=== PATIENT | male | born 1975 | race Caucasian/White ===

== ENCOUNTER 2021-02-03 12:21 | Inpatient (IN) | payer OTHER ==
[2021-02-03 12:55] VITALS: BMI 38.0
[2021-02-03] MEDS ORDERED: guaiFENesin 200 MG/10 ML 10 ML UNIT-DOSE CUPS PO PRN (16:41)
[2021-02-03] MEDS ORDERED: NICOTINE POLACRILEX 2 MG GUM BC PRN (16:41)
[2021-02-03] MEDS ORDERED: MAGNESIUM HYDROX 2400MG/30ML ORAL SUSPENSION 30 ML CUP PO PRN (16:41)
[2021-02-03] MEDS ORDERED: LOPERAMIDE HCL 2 MG CAPSULE PO PRN (16:41)
[2021-02-03] MEDS ORDERED: P-EPHED 60MG/TRIPROLIDI 2.5MG TABLET PO PRN (16:41)
[2021-02-03] MEDS ORDERED: MAGNESIUM CITRATE 300 ML BOTTLE PO PRN (16:41)
[2021-02-03] MEDS: MELATONIN 5 MG TABLETS PO SCH (21:33)
[2021-02-03] MEDS: THIAMINE HCL 100 MG TABLET (FP) PO SCH (21:33)
[2021-02-03] MEDS ORDERED: traZODone HCL 100 MG TABLET (FP) PO ONE (22:00)
[2021-02-04] MEDS: metFORMIN HCL 500 MG TABLET (FP) PO SCH ×2 (06:13→16:54)
[2021-02-04] MEDS: MAG HYDROX/AL HYDROX/SIMETH 30 ML UNIT-DOSE CUP PO PRN ×2 (06:13→21:44)
[2021-02-04] MEDS: IBUPROFEN 400 MG TABLET (FP) PO PRN (06:13)
[2021-02-04] MEDS ORDERED: DIVALPROEX NA *ER* EXTEND REL 500 MG TABLET.SA (FP) PO SCH (10:00)
[2021-02-04] MEDS: NICOTINE 7 MG/24 HOURS TOPICAL PATCH TD SCH (10:45)
[2021-02-04] MEDS: CITALOPRAM HYDROBROMIDE 20 MG TABLET PO SCH (10:47)
[2021-02-04] MEDS: PRENATAL VITAMINS W/ FOLIC ACID TABLET (FP) PO SCH (10:47)
[2021-02-04 17:02] LABS: PH,URINE >= 9.0 (5.0-8.0); URINE APPEARANCE CLEAR; URINE BILIRUBIN NEGATIVE (NEGATIVE); URINE COLOR YELLOW; URINE GLUCOSE (UA) NEGATIVE (NEGATIVE); URINE KETONE NEGATIVE (NEGATIVE); URINE LEUK ESTERASE NEGATIVE (NEGATIVE); URINE NITRITE NEGATIVE (NEGATIVE); URINE PROTEIN NEGATIVE (NEGATIVE); URINE UROBILINOGEN 0.2 mg/dL (0.2-1.0)
[2021-02-04] MEDS: THIAMINE HCL 100 MG TABLET (FP) PO SCH (21:43)
[2021-02-04] MEDS: DIVALPROEX SODIUM 500 MG TABLET E.C. PO SCH (21:43)
[2021-02-04] MEDS ORDERED: ARIPiprazole 5 MG TABLET ONE (21:43)
[2021-02-04] MEDS: BENZTROPINE MESYLATE 1 MG TABLET PO SCH (21:44)
[2021-02-04] MEDS: traZODone HCL 100 MG TABLET (FP) PO SCH (21:44)
[2021-02-04] MEDS: ARIPiprazole 10 MG TABLET PO SCH (21:44)
[2021-02-04] MEDS: MELATONIN 5 MG TABLETS PO SCH (21:47)
[2021-02-05] MEDS: metFORMIN HCL 500 MG TABLET (FP) PO SCH ×2 (06:48→16:40)
[2021-02-05] MEDS: NICOTINE 7 MG/24 HOURS TOPICAL PATCH TD SCH (10:31)
[2021-02-05] MEDS: CITALOPRAM HYDROBROMIDE 20 MG TABLET PO SCH (10:31)
[2021-02-05] MEDS: PRENATAL VITAMINS W/ FOLIC ACID TABLET (FP) PO SCH (10:31)
[2021-02-05] MEDS: hydrOXYzine PAMOATE 25 MG CAPSULE (FP) PO PRN (10:33)
[2021-02-05] MEDS: IBUPROFEN 400 MG TABLET (FP) PO PRN (10:33)
[2021-02-05] MEDS ORDERED: FAMOTIDINE 20 MG TABLET PO ONE (10:51)
[2021-02-05] MEDS: METHOCARBAMOL 500 MG TABLET PO PRN (12:03)
[2021-02-05 13:31] LABS: HEMATOCRIT 44.9 % (35.4-49); HEMOGLOBIN 14.4 GM/dL (11.7-16.9); MCH 27.6 pg (25.7-33.7); MCHC 32.1 g/dl (32.0-35.9); MEAN CELL VOLUME 85.8 fl (80-96); MEAN PLT VOLUME 8.9 fl (7.5-11.1); PLATELET COUNT 217 10^3/uL (134-434); RBC 5.24 M/mm3 (4.00-5.60); RDW 16.2 % (11.9-15.9)
[2021-02-05 13:34] LABS: ALBUMIN 4.2 g/dl (3.4-5.0); BLOOD UREA NITROGEN 9.4 mg/dL (7-18); CALCIUM 9.3 mg/dL (8.5-10.1)
[2021-02-05 13:37] LABS: CREATININE 1.1 mg/dL (0.55-1.3)
[2021-02-05 13:39] LABS: BILIRUBIN,TOTAL 0.4 mg/dL (0.2-1); TOT PROT 7.8 g/dl (6.4-8.2)
[2021-02-05] MEDS ORDERED: ARIPiprazole 5 MG TABLET ONE (19:20)
[2021-02-05] MEDS: ARIPiprazole 10 MG TABLET PO SCH (21:51)
[2021-02-05] MEDS: DIVALPROEX SODIUM 500 MG TABLET E.C. PO SCH (21:51)
[2021-02-05] MEDS: THIAMINE HCL 100 MG TABLET (FP) PO SCH (21:52)
[2021-02-05] MEDS: BENZTROPINE MESYLATE 1 MG TABLET PO SCH (21:52)
[2021-02-05] MEDS: traZODone HCL 100 MG TABLET (FP) PO SCH (21:52)
[2021-02-05] MEDS: FAMOTIDINE 20 MG TABLET PO SCH (21:54)
[2021-02-05] MEDS: MELATONIN 5 MG TABLETS PO SCH (21:54)
[2021-02-06] MEDS: metFORMIN HCL 500 MG TABLET (FP) PO SCH ×2 (06:39→17:04)
[2021-02-06] MEDS: METHOCARBAMOL 500 MG TABLET PO PRN ×2 (10:30→22:04)
[2021-02-06] MEDS: hydrOXYzine PAMOATE 25 MG CAPSULE (FP) PO PRN (10:30)
[2021-02-06] MEDS: FAMOTIDINE 20 MG TABLET PO SCH ×2 (10:30→22:04)
[2021-02-06] MEDS: CITALOPRAM HYDROBROMIDE 20 MG TABLET PO SCH (10:30)
[2021-02-06] MEDS: PRENATAL VITAMINS W/ FOLIC ACID TABLET (FP) PO SCH (10:30)
[2021-02-06] MEDS: NICOTINE 7 MG/24 HOURS TOPICAL PATCH TD SCH (10:30)
[2021-02-06] MEDS: IBUPROFEN 400 MG TABLET (FP) PO PRN (10:32)
[2021-02-06] MEDS ORDERED: ARIPiprazole 5 MG TABLET ONE (20:17)
[2021-02-06] MEDS: DIVALPROEX SODIUM 500 MG TABLET E.C. PO SCH (22:01)
[2021-02-06] MEDS: THIAMINE HCL 100 MG TABLET (FP) PO SCH (22:02)
[2021-02-06] MEDS: BENZTROPINE MESYLATE 1 MG TABLET PO SCH (22:02)
[2021-02-06] MEDS: traZODone HCL 100 MG TABLET (FP) PO SCH (22:03)
[2021-02-06] MEDS: ARIPiprazole 10 MG TABLET PO SCH (22:03)
[2021-02-06] MEDS: MELATONIN 5 MG TABLETS PO SCH (22:04)
[2021-02-07] MEDS: metFORMIN HCL 500 MG TABLET (FP) PO SCH ×2 (06:07→16:55)
[2021-02-07] MEDS: CITALOPRAM HYDROBROMIDE 20 MG TABLET PO SCH (10:06)
[2021-02-07] MEDS: FAMOTIDINE 20 MG TABLET PO SCH ×2 (10:06→21:33)
[2021-02-07] MEDS: PRENATAL VITAMINS W/ FOLIC ACID TABLET (FP) PO SCH (10:06)
[2021-02-07] MEDS: NICOTINE 7 MG/24 HOURS TOPICAL PATCH TD SCH (10:07)
[2021-02-07] MEDS: METHOCARBAMOL 500 MG TABLET PO PRN (10:08)
[2021-02-07] MEDS: IBUPROFEN 400 MG TABLET (FP) PO PRN (10:08)
[2021-02-07] MEDS ORDERED: ARIPiprazole 5 MG TABLET ONE (20:20)
[2021-02-07] MEDS: ARIPiprazole 10 MG TABLET PO SCH (21:33)
[2021-02-07] MEDS: THIAMINE HCL 100 MG TABLET (FP) PO SCH (21:33)
[2021-02-07] MEDS: BENZTROPINE MESYLATE 1 MG TABLET PO SCH (21:33)
[2021-02-07] MEDS: MELATONIN 5 MG TABLETS PO SCH (21:33)
[2021-02-07] MEDS: DIVALPROEX SODIUM 500 MG TABLET E.C. PO SCH (21:33)
[2021-02-07] MEDS: traZODone HCL 100 MG TABLET (FP) PO SCH (21:33)
[2021-02-08] MEDS: metFORMIN HCL 500 MG TABLET (FP) PO SCH ×2 (06:29→16:34)
[2021-02-08] MEDS: PRENATAL VITAMINS W/ FOLIC ACID TABLET (FP) PO SCH (09:21)
[2021-02-08] MEDS: IBUPROFEN 400 MG TABLET (FP) PO PRN (09:21)
[2021-02-08] MEDS: FAMOTIDINE 20 MG TABLET PO SCH ×2 (09:22→21:29)
[2021-02-08] MEDS: NICOTINE 7 MG/24 HOURS TOPICAL PATCH TD SCH (09:22)
[2021-02-08] MEDS: CITALOPRAM HYDROBROMIDE 20 MG TABLET PO SCH (09:22)
[2021-02-08] MEDS ORDERED: ARIPiprazole 5 MG TABLET ONE (19:33)
[2021-02-08] MEDS: traZODone HCL 100 MG TABLET (FP) PO SCH (21:28)
[2021-02-08] MEDS: THIAMINE HCL 100 MG TABLET (FP) PO SCH (21:28)
[2021-02-08] MEDS: DIVALPROEX SODIUM 500 MG TABLET E.C. PO SCH (21:28)
[2021-02-08] MEDS: BENZTROPINE MESYLATE 1 MG TABLET PO SCH (21:28)
[2021-02-08] MEDS: MELATONIN 5 MG TABLETS PO SCH (21:29)
[2021-02-08] MEDS: ARIPiprazole 10 MG TABLET PO SCH (21:29)
[2021-02-09] MEDS: metFORMIN HCL 500 MG TABLET (FP) PO SCH ×2 (06:51→17:36)
[2021-02-09] MEDS: PRENATAL VITAMINS W/ FOLIC ACID TABLET (FP) PO SCH (10:36)
[2021-02-09] MEDS: CITALOPRAM HYDROBROMIDE 20 MG TABLET PO SCH (10:36)
[2021-02-09] MEDS: NICOTINE 7 MG/24 HOURS TOPICAL PATCH TD SCH (10:37)
[2021-02-09] MEDS: IBUPROFEN 400 MG TABLET (FP) PO PRN (10:38)
[2021-02-09] MEDS: METHOCARBAMOL 500 MG TABLET PO PRN (10:38)
[2021-02-09] MEDS: FAMOTIDINE 20 MG TABLET PO SCH ×2 (11:27→21:38)
[2021-02-09] MEDS ORDERED: ARIPiprazole 5 MG TABLET ONE (19:50)
[2021-02-09] MEDS: MELATONIN 5 MG TABLETS PO SCH (21:34)
[2021-02-09] MEDS: THIAMINE HCL 100 MG TABLET (FP) PO SCH (21:35)
[2021-02-09] MEDS: ARIPiprazole 10 MG TABLET PO SCH (21:36)
[2021-02-09] MEDS: traZODone HCL 100 MG TABLET (FP) PO SCH (21:36)
[2021-02-09] MEDS: BENZTROPINE MESYLATE 1 MG TABLET PO SCH (21:36)
[2021-02-09] MEDS: DIVALPROEX SODIUM 500 MG TABLET E.C. PO SCH (21:36)
[2021-02-09 22:56] LABS: HIV INTERPRETATION NEGATIVE (NEGATIVE)
[2021-02-10] MEDS: metFORMIN HCL 500 MG TABLET (FP) PO SCH ×2 (06:51→16:54)
[2021-02-10] MEDS: FAMOTIDINE 20 MG TABLET PO SCH ×2 (06:51→21:25)
[2021-02-10] MEDS: CITALOPRAM HYDROBROMIDE 20 MG TABLET PO SCH (10:11)
[2021-02-10] MEDS: PRENATAL VITAMINS W/ FOLIC ACID TABLET (FP) PO SCH (10:11)
[2021-02-10] MEDS: METHOCARBAMOL 500 MG TABLET PO PRN (10:12)
[2021-02-10] MEDS: NICOTINE 7 MG/24 HOURS TOPICAL PATCH TD SCH (10:13)
[2021-02-10] MEDS: ACETAMINOPHEN 325 MG TABLET (FP) PO PRN (10:13)
[2021-02-10] MEDS: DIVALPROEX SODIUM 500 MG TABLET E.C. PO SCH (21:25)
[2021-02-10] MEDS: THIAMINE HCL 100 MG TABLET (FP) PO SCH (21:25)
[2021-02-10] MEDS: MELATONIN 5 MG TABLETS PO SCH (21:26)
[2021-02-10] MEDS: BENZTROPINE MESYLATE 1 MG TABLET PO SCH (21:26)
[2021-02-10] MEDS: traZODone HCL 100 MG TABLET (FP) PO SCH (21:26)
[2021-02-10] MEDS: ARIPiprazole 10 MG TABLET PO SCH (21:26)
[2021-02-11] MEDS: metFORMIN HCL 500 MG TABLET (FP) PO SCH ×2 (06:15→16:47)
[2021-02-11] MEDS: FAMOTIDINE 20 MG TABLET PO SCH ×2 (06:15→21:33)
[2021-02-11] MEDS: MAG HYDROX/AL HYDROX/SIMETH 30 ML UNIT-DOSE CUP PO PRN (06:21)
[2021-02-11] MEDS: IBUPROFEN 400 MG TABLET (FP) PO PRN (10:11)
[2021-02-11] MEDS: PRENATAL VITAMINS W/ FOLIC ACID TABLET (FP) PO SCH (10:12)
[2021-02-11] MEDS: CITALOPRAM HYDROBROMIDE 20 MG TABLET PO SCH (10:12)
[2021-02-11] MEDS: hydrOXYzine PAMOATE 25 MG CAPSULE (FP) PO PRN ×2 (10:12→21:33)
[2021-02-11] MEDS: NICOTINE 7 MG/24 HOURS TOPICAL PATCH TD SCH (10:12)
[2021-02-11] MEDS: METHOCARBAMOL 500 MG TABLET PO PRN ×2 (10:12→21:32)
[2021-02-11] MEDS ORDERED: ARIPiprazole 5 MG TABLET ONE (19:24)
[2021-02-11] MEDS: DIVALPROEX SODIUM 500 MG TABLET E.C. PO SCH (21:32)
[2021-02-11] MEDS: THIAMINE HCL 100 MG TABLET (FP) PO SCH (21:32)
[2021-02-11] MEDS: traZODone HCL 100 MG TABLET (FP) PO SCH (21:32)
[2021-02-11] MEDS: ARIPiprazole 10 MG TABLET PO SCH (21:32)
[2021-02-11] MEDS: BENZTROPINE MESYLATE 1 MG TABLET PO SCH (21:33)
[2021-02-11] MEDS: MELATONIN 5 MG TABLETS PO SCH (21:33)
[2021-02-12] MEDS: FAMOTIDINE 20 MG TABLET PO SCH ×2 (06:18→21:33)
[2021-02-12] MEDS: metFORMIN HCL 500 MG TABLET (FP) PO SCH ×2 (06:18→16:50)
[2021-02-12] MEDS: PRENATAL VITAMINS W/ FOLIC ACID TABLET (FP) PO SCH (10:13)
[2021-02-12] MEDS: hydrOXYzine PAMOATE 25 MG CAPSULE (FP) PO PRN ×2 (10:14→21:33)
[2021-02-12] MEDS: NICOTINE 7 MG/24 HOURS TOPICAL PATCH TD SCH (10:14)
[2021-02-12] MEDS: CITALOPRAM HYDROBROMIDE 20 MG TABLET PO SCH (10:14)
[2021-02-12] MEDS ORDERED: ARIPiprazole 5 MG TABLET ONE (19:35)
[2021-02-12] MEDS: THIAMINE HCL 100 MG TABLET (FP) PO SCH (21:32)
[2021-02-12] MEDS: METHOCARBAMOL 500 MG TABLET PO PRN (21:32)
[2021-02-12] MEDS: MELATONIN 5 MG TABLETS PO SCH (21:32)
[2021-02-12] MEDS: BENZTROPINE MESYLATE 1 MG TABLET PO SCH (21:32)
[2021-02-12] MEDS: traZODone HCL 100 MG TABLET (FP) PO SCH (21:33)
[2021-02-12] MEDS: DIVALPROEX SODIUM 500 MG TABLET E.C. PO SCH (21:34)
[2021-02-12] MEDS: ARIPiprazole 10 MG TABLET PO SCH (21:35)
[2021-02-13] MEDS: metFORMIN HCL 500 MG TABLET (FP) PO SCH ×2 (06:43→17:24)
[2021-02-13] MEDS: FAMOTIDINE 20 MG TABLET PO SCH ×2 (06:43→21:16)
[2021-02-13] MEDS: NICOTINE 7 MG/24 HOURS TOPICAL PATCH TD SCH (10:06)
[2021-02-13] MEDS: CITALOPRAM HYDROBROMIDE 20 MG TABLET PO SCH (10:06)
[2021-02-13] MEDS: hydrOXYzine PAMOATE 25 MG CAPSULE (FP) PO PRN (10:06)
[2021-02-13] MEDS: PRENATAL VITAMINS W/ FOLIC ACID TABLET (FP) PO SCH (10:06)
[2021-02-13] MEDS: IBUPROFEN 400 MG TABLET (FP) PO PRN ×2 (10:08→21:18)
[2021-02-13] MEDS: METHOCARBAMOL 500 MG TABLET PO PRN ×2 (10:08→21:18)
[2021-02-13] MEDS ORDERED: ARIPiprazole 5 MG TABLET ONE (18:25)
[2021-02-13] MEDS: DIVALPROEX SODIUM 500 MG TABLET E.C. PO SCH (21:16)
[2021-02-13] MEDS: traZODone HCL 100 MG TABLET (FP) PO SCH (21:16)
[2021-02-13] MEDS: THIAMINE HCL 100 MG TABLET (FP) PO SCH (21:16)
[2021-02-13] MEDS: ARIPiprazole 10 MG TABLET PO SCH (21:16)
[2021-02-13] MEDS: BENZTROPINE MESYLATE 1 MG TABLET PO SCH (21:16)
[2021-02-13] MEDS: MELATONIN 5 MG TABLETS PO SCH (21:17)
[2021-02-14] MEDS: FAMOTIDINE 20 MG TABLET PO SCH ×2 (06:40→21:37)
[2021-02-14] MEDS: metFORMIN HCL 500 MG TABLET (FP) PO SCH ×2 (06:40→17:09)
[2021-02-14] MEDS: NICOTINE 7 MG/24 HOURS TOPICAL PATCH TD SCH (10:29)
[2021-02-14] MEDS: PRENATAL VITAMINS W/ FOLIC ACID TABLET (FP) PO SCH (10:29)
[2021-02-14] MEDS: METHOCARBAMOL 500 MG TABLET PO PRN ×2 (10:29→21:37)
[2021-02-14] MEDS: IBUPROFEN 400 MG TABLET (FP) PO PRN (10:29)
[2021-02-14] MEDS: CITALOPRAM HYDROBROMIDE 20 MG TABLET PO SCH (10:29)
[2021-02-14] MEDS: hydrOXYzine PAMOATE 25 MG CAPSULE (FP) PO PRN ×2 (10:29→21:37)
[2021-02-14] MEDS ORDERED: ARIPiprazole 5 MG TABLET ONE (19:48)
[2021-02-14] MEDS: traZODone HCL 100 MG TABLET (FP) PO SCH (21:37)
[2021-02-14] MEDS: DIVALPROEX SODIUM 500 MG TABLET E.C. PO SCH (21:37)
[2021-02-14] MEDS: THIAMINE HCL 100 MG TABLET (FP) PO SCH (21:37)
[2021-02-14] MEDS: ARIPiprazole 10 MG TABLET PO SCH (21:37)
[2021-02-14] MEDS: BENZTROPINE MESYLATE 1 MG TABLET PO SCH (21:37)
[2021-02-14] MEDS: MELATONIN 5 MG TABLETS PO SCH (21:38)
[2021-02-15] MEDS: FAMOTIDINE 20 MG TABLET PO SCH ×2 (06:35→21:40)
[2021-02-15] MEDS: metFORMIN HCL 500 MG TABLET (FP) PO SCH ×2 (06:35→16:51)
[2021-02-15] MEDS: CITALOPRAM HYDROBROMIDE 20 MG TABLET PO SCH (10:07)
[2021-02-15] MEDS: NICOTINE 7 MG/24 HOURS TOPICAL PATCH TD SCH (10:07)
[2021-02-15] MEDS: hydrOXYzine PAMOATE 25 MG CAPSULE (FP) PO PRN ×2 (10:07→21:40)
[2021-02-15] MEDS: PRENATAL VITAMINS W/ FOLIC ACID TABLET (FP) PO SCH (10:07)
[2021-02-15] MEDS: ACETAMINOPHEN 325 MG TABLET (FP) PO PRN (10:08)
[2021-02-15] MEDS: MELATONIN 5 MG TABLETS PO SCH (21:40)
[2021-02-15] MEDS: DIVALPROEX SODIUM 500 MG TABLET E.C. PO SCH (21:40)
[2021-02-15] MEDS: THIAMINE HCL 100 MG TABLET (FP) PO SCH (21:40)
[2021-02-15] MEDS: BENZTROPINE MESYLATE 1 MG TABLET PO SCH (21:40)
[2021-02-15] MEDS: traZODone HCL 100 MG TABLET (FP) PO SCH (21:40)
[2021-02-15] MEDS: METHOCARBAMOL 500 MG TABLET PO PRN (21:40)
[2021-02-15] MEDS: ARIPiprazole 10 MG TABLET PO SCH (22:11)
[2021-02-16] MEDS: FAMOTIDINE 20 MG TABLET PO SCH ×2 (06:48→21:19)
[2021-02-16] MEDS: metFORMIN HCL 500 MG TABLET (FP) PO SCH ×2 (06:48→16:57)
[2021-02-16] MEDS: CITALOPRAM HYDROBROMIDE 20 MG TABLET PO SCH (10:09)
[2021-02-16] MEDS: NICOTINE 7 MG/24 HOURS TOPICAL PATCH TD SCH (10:10)
[2021-02-16] MEDS: PRENATAL VITAMINS W/ FOLIC ACID TABLET (FP) PO SCH (10:10)
[2021-02-16] MEDS: METHOCARBAMOL 500 MG TABLET PO PRN (10:12)
[2021-02-16] MEDS: hydrOXYzine PAMOATE 25 MG CAPSULE (FP) PO PRN (10:13)
[2021-02-16] MEDS: BACITRACIN 0.9 GM PACKET TP SCH (14:00)
[2021-02-16] MEDS: metoPROLOL SUCCINATE 25 MG TAB.SR.24H (FP) PO SCH (14:31)
[2021-02-16] MEDS ORDERED: ARIPiprazole 5 MG TABLET ONE (18:41)
[2021-02-16] MEDS: ARIPiprazole 10 MG TABLET PO SCH (21:19)
[2021-02-16] MEDS: BENZTROPINE MESYLATE 1 MG TABLET PO SCH (21:19)
[2021-02-16] MEDS: THIAMINE HCL 100 MG TABLET (FP) PO SCH (21:19)
[2021-02-16] MEDS: DIVALPROEX SODIUM 500 MG TABLET E.C. PO SCH (21:19)
[2021-02-16] MEDS: traZODone HCL 100 MG TABLET (FP) PO SCH (21:19)
[2021-02-16] MEDS: MELATONIN 5 MG TABLETS PO SCH (21:20)
[2021-02-16] MEDS ORDERED: ATORVASTATIN CA 80 MG TABLET (FP) PO SCH (22:00)
[2021-02-17] MEDS: metFORMIN HCL 500 MG TABLET (FP) PO SCH (06:15)
[2021-02-17] MEDS: FAMOTIDINE 20 MG TABLET PO SCH (06:19)
[2021-02-17 08:25] VITALS: BP 123/79; PULSE 85; TEMP 97.5
[2021-02-17] MEDS: metoPROLOL SUCCINATE 25 MG TAB.SR.24H (FP) PO SCH (09:05)
[2021-02-17] MEDS: CITALOPRAM HYDROBROMIDE 20 MG TABLET PO SCH (09:05)
[2021-02-17] MEDS: PRENATAL VITAMINS W/ FOLIC ACID TABLET (FP) PO SCH (09:05)
[2021-02-17] MEDS: NICOTINE 7 MG/24 HOURS TOPICAL PATCH TD SCH (09:06)
[2021-02-17] MEDS: BACITRACIN 0.9 GM PACKET TP SCH (09:06)
== END 2021-02-17 09:20 | disposition home or self-care (01) | DRG 895 ==
LOC: YASAS 12:21 → Y5N 17:19
PROVIDERS: ADMIT Allergy & Immunology; ATTEND Allergy & Immunology
PROC: HZ42ZZZ Group Counseling for Substance Abuse Treatment, Cognitive-Behavioral (ICD-10-PCS; principal; 2021-02-03)
DX: F14.20 Cocaine dependence, uncomplicated (principal); F19.282 Other psychoactive substance dependence with psychoactive substance-induced sleep disorder; F12.20 Cannabis dependence, uncomplicated; F17.210 Nicotine dependence, cigarettes, uncomplicated; F31.9 Bipolar disorder, unspecified; F43.10 Post-traumatic stress disorder, unspecified; F60.9 Personality disorder, unspecified; I11.0 Hypertensive heart disease with heart failure; I50.9 Heart failure, unspecified; E78.5 Hyperlipidemia, unspecified; E11.9 Type 2 diabetes mellitus without complications; Z79.84 Long term (current) use of oral hypoglycemic drugs; K21.9 Gastro-esophageal reflux disease without esophagitis; K57.30 Diverticulosis of large intestine without perforation or abscess without bleeding; M54.5 Low back pain; G89.29 Other chronic pain; Z62.810 Personal history of physical and sexual abuse in childhood
CPT/HCPCS: 36415; 80053; 81003; 82962; 85027; 86780; 87389; C9803; U0003; U0005

== ENCOUNTER 2021-04-27 12:43 | Inpatient (IN) | payer OTHER ==
[2021-04-27 15:12] VITALS: BMI 40.6
[2021-04-27] MEDS ORDERED: guaiFENesin 200 MG/10 ML 10 ML UNIT-DOSE CUPS PO PRN (20:45)
[2021-04-27] MEDS ORDERED: MAGNESIUM CITRATE 300 ML BOTTLE PO PRN (20:45)
[2021-04-27] MEDS ORDERED: P-EPHED 60MG/TRIPROLIDI 2.5MG TABLET PO PRN (20:45)
[2021-04-27] MEDS ORDERED: LOPERAMIDE HCL 2 MG CAPSULE PO PRN (20:45)
[2021-04-27] MEDS ORDERED: ACETAMINOPHEN 325 MG TABLET (FP) PO PRN (20:45)
[2021-04-27] MEDS ORDERED: MAGNESIUM HYDROX 2400MG/30ML ORAL SUSPENSION 30 ML CUP PO PRN (20:45)
[2021-04-27] MEDS ORDERED: MELATONIN 5 MG TABLETS PO SCH (22:00)
[2021-04-27] MEDS ORDERED: ATORVASTATIN CA 40 MG TABLET (FP) ONE (23:01)
[2021-04-27] MEDS ORDERED: INSULIN (NOVOLOG) ASPART 100 UNITS/ML 10ML VIAL SQ ONE (23:08)
[2021-04-27] MEDS: THIAMINE HCL 100 MG TABLET (FP) PO SCH (23:09)
[2021-04-27] MEDS: GABAPENTIN 300 MG CAPSULE PO SCH (23:09)
[2021-04-27] MEDS: hydrOXYzine PAMOATE 25 MG CAPSULE (FP) PO PRN (23:09)
[2021-04-27] MEDS: ATORVASTATIN CA 80 MG TABLET (FP) PO SCH (23:10)
[2021-04-27] MEDS: ASPIRIN 81 MG CHEWABLE TABLETS PO SCH (23:10)
[2021-04-27] MEDS: SACUBITRIL/VALSARTAN 24 MG-26 MG TABLET PO SCH (23:12)
[2021-04-27] MEDS: FAMOTIDINE 20 MG TABLET PO SCH (23:40)
[2021-04-27] MEDS: PANTOPRAZOLE 40 MG TABLET PO SCH (23:40)
[2021-04-27] MEDS: INSULIN SLIDING SCALE (NOVOLOG) 1 VIAL SQ SCH ×2 (23:41→23:42)
[2021-04-28] MEDS ORDERED: INSULIN (NOVOLOG) ASPART 100 UNITS/ML 10ML VIAL ONE ×6 (00:13→21:28)
[2021-04-28] MEDS: MAG HYDROX/AL HYDROX/SIMETH 30 ML UNIT-DOSE CUP PO PRN (06:46)
[2021-04-28] MEDS: INSULIN SLIDING SCALE (NOVOLOG) 1 VIAL SQ SCH ×4 (06:49→21:31)
[2021-04-28] MEDS: PRENATAL VITAMINS W/ FOLIC ACID TABLET (FP) PO SCH (09:44)
[2021-04-28] MEDS: ASPIRIN 81 MG CHEWABLE TABLETS PO SCH (09:44)
[2021-04-28] MEDS: FAMOTIDINE 20 MG TABLET PO SCH ×2 (09:44→21:25)
[2021-04-28] MEDS: GABAPENTIN 300 MG CAPSULE PO SCH ×2 (09:45→21:25)
[2021-04-28] MEDS: metoPROLOL SUCCINATE 25 MG TAB.SR.24H (FP) PO SCH (09:45)
[2021-04-28] MEDS: SACUBITRIL/VALSARTAN 24 MG-26 MG TABLET PO SCH ×2 (09:45→21:31)
[2021-04-28] MEDS: PANTOPRAZOLE 40 MG TABLET PO SCH (09:45)
[2021-04-28 10:15] LABS: HEMATOCRIT 43.7 % (35.4-49); HEMOGLOBIN 14.4 GM/dL (11.7-16.9); MCH 28.3 pg (25.7-33.7); MEAN CELL VOLUME 85.7 fl (80-96); MEAN PLT VOLUME 9.7 fl (7.5-11.1); PLATELET COUNT 210 10^3/uL (134-434); RDW 14.5 % (11.9-15.9); WHITE BLOOD COUNT 7.3 K/mm3 (4.0-10.0)
[2021-04-28 10:48] LABS: ALBUMIN 3.6 g/dl (3.4-5.0); BLOOD UREA NITROGEN 14.3 mg/dL (7-18); CALCIUM 9.5 mg/dL (8.5-10.1)
[2021-04-28 10:53] LABS: BILIRUBIN,TOTAL 0.3 mg/dL (0.2-1); TOT PROT 7.4 g/dl (6.4-8.2)
[2021-04-28] MEDS: CITALOPRAM HYDROBROMIDE 20 MG TABLET PO SCH (11:36)
[2021-04-28] MEDS ORDERED: ATORVASTATIN CA 40 MG TABLET (FP) ONE (19:11)
[2021-04-28 19:29] LABS: HIV INTERPRETATION NEGATIVE (NEGATIVE)
[2021-04-28] MEDS: THIAMINE HCL 100 MG TABLET (FP) PO SCH (21:25)
[2021-04-28] MEDS: ATORVASTATIN CA 80 MG TABLET (FP) PO SCH (21:25)
[2021-04-28] MEDS: ARIPiprazole 10 MG TABLET PO SCH (21:29)
[2021-04-28] MEDS: traZODone HCL 100 MG TABLET (FP) PO SCH (21:29)
[2021-04-29] MEDS ORDERED: PT OWN MED DRAWER 7, Y5N ONE (03:07)
[2021-04-29] MEDS: INSULIN SLIDING SCALE (NOVOLOG) 1 VIAL SQ SCH ×4 (06:42→22:28)
[2021-04-29] MEDS: GABAPENTIN 300 MG CAPSULE PO SCH ×2 (10:05→22:25)
[2021-04-29] MEDS: ASPIRIN 81 MG CHEWABLE TABLETS PO SCH (10:05)
[2021-04-29] MEDS: PANTOPRAZOLE 40 MG TABLET PO SCH (10:05)
[2021-04-29] MEDS: PRENATAL VITAMINS W/ FOLIC ACID TABLET (FP) PO SCH (10:05)
[2021-04-29] MEDS: CITALOPRAM HYDROBROMIDE 20 MG TABLET PO SCH (10:05)
[2021-04-29] MEDS: FAMOTIDINE 20 MG TABLET PO SCH ×2 (10:05→22:27)
[2021-04-29] MEDS: metoPROLOL SUCCINATE 25 MG TAB.SR.24H (FP) PO SCH (10:05)
[2021-04-29] MEDS: MAG HYDROX/AL HYDROX/SIMETH 30 ML UNIT-DOSE CUP PO PRN (10:09)
[2021-04-29] MEDS: SACUBITRIL/VALSARTAN 24 MG-26 MG TABLET PO SCH ×2 (11:05→22:27)
[2021-04-29] MEDS ORDERED: INSULIN (NOVOLOG) ASPART 100 UNITS/ML 10ML VIAL ONE ×2 (11:13→16:49)
[2021-04-29] MEDS ORDERED: ATORVASTATIN CA 40 MG TABLET (FP) ONE (19:40)
[2021-04-29] MEDS: THIAMINE HCL 100 MG TABLET (FP) PO SCH (22:25)
[2021-04-29] MEDS: ARIPiprazole 10 MG TABLET PO SCH (22:26)
[2021-04-29] MEDS: traZODone HCL 100 MG TABLET (FP) PO SCH (22:26)
[2021-04-29] MEDS: hydrOXYzine PAMOATE 25 MG CAPSULE (FP) PO PRN (22:28)
[2021-04-29] MEDS: ATORVASTATIN CA 80 MG TABLET (FP) PO SCH (22:28)
[2021-04-29] MEDS: INSULIN (LEVEMIR) 100 UNITS/ML UNITS SQ SCH (22:29)
[2021-04-30] MEDS: INSULIN SLIDING SCALE (NOVOLOG) 1 VIAL SQ SCH ×4 (06:38→21:50)
[2021-04-30] MEDS: PRENATAL VITAMINS W/ FOLIC ACID TABLET (FP) PO SCH (10:03)
[2021-04-30] MEDS: PANTOPRAZOLE 40 MG TABLET PO SCH (10:04)
[2021-04-30] MEDS: ASPIRIN 81 MG CHEWABLE TABLETS PO SCH (10:04)
[2021-04-30] MEDS: FAMOTIDINE 20 MG TABLET PO SCH ×2 (10:04→21:48)
[2021-04-30] MEDS: SACUBITRIL/VALSARTAN 24 MG-26 MG TABLET PO SCH ×2 (10:04→21:48)
[2021-04-30] MEDS: GABAPENTIN 300 MG CAPSULE PO SCH ×2 (10:04→21:48)
[2021-04-30] MEDS: metoPROLOL SUCCINATE 25 MG TAB.SR.24H (FP) PO SCH (10:04)
[2021-04-30] MEDS: CITALOPRAM HYDROBROMIDE 20 MG TABLET PO SCH (10:04)
[2021-04-30] MEDS ORDERED: INSULIN (NOVOLOG) ASPART 100 UNITS/ML 10ML VIAL ONE ×2 (11:53→16:44)
[2021-04-30 12:55] LABS: PH,URINE 7.5 (5.0-8.0); URINE APPEARANCE CLEAR; URINE BILIRUBIN NEGATIVE (NEGATIVE); URINE COLOR YELLOW; URINE GLUCOSE (UA) 3+ (NEGATIVE); URINE KETONE NEGATIVE (NEGATIVE); URINE LEUK ESTERASE NEGATIVE (NEGATIVE); URINE NITRITE NEGATIVE (NEGATIVE); URINE PROTEIN NEGATIVE (NEGATIVE); URINE UROBILINOGEN 0.2 mg/dL (0.2-1.0)
[2021-04-30] MEDS ORDERED: ATORVASTATIN CA 40 MG TABLET (FP) ONE (19:36)
[2021-04-30] MEDS ORDERED: PT OWN MED DRAWER 7, Y5N ONE (19:37)
[2021-04-30] MEDS: traZODone HCL 100 MG TABLET (FP) PO SCH (21:48)
[2021-04-30] MEDS: THIAMINE HCL 100 MG TABLET (FP) PO SCH (21:48)
[2021-04-30] MEDS: ARIPiprazole 10 MG TABLET PO SCH (21:48)
[2021-04-30] MEDS: ATORVASTATIN CA 80 MG TABLET (FP) PO SCH (21:48)
[2021-04-30] MEDS: INSULIN (LEVEMIR) 100 UNITS/ML UNITS SQ SCH (21:51)
[2021-05-01] MEDS: INSULIN SLIDING SCALE (NOVOLOG) 1 VIAL SQ SCH ×4 (07:45→21:22)
[2021-05-01] MEDS ORDERED: INSULIN (NOVOLOG) ASPART 100 UNITS/ML 10ML VIAL ONE ×4 (07:50→22:16)
[2021-05-01] MEDS: PRENATAL VITAMINS W/ FOLIC ACID TABLET (FP) PO SCH (10:10)
[2021-05-01] MEDS: GABAPENTIN 300 MG CAPSULE PO SCH ×2 (10:11→21:28)
[2021-05-01] MEDS: metoPROLOL SUCCINATE 25 MG TAB.SR.24H (FP) PO SCH (10:11)
[2021-05-01] MEDS: PANTOPRAZOLE 40 MG TABLET PO SCH (10:11)
[2021-05-01] MEDS: CITALOPRAM HYDROBROMIDE 20 MG TABLET PO SCH (10:11)
[2021-05-01] MEDS: FAMOTIDINE 20 MG TABLET PO SCH ×2 (10:11→21:28)
[2021-05-01] MEDS: ASPIRIN 81 MG CHEWABLE TABLETS PO SCH (10:11)
[2021-05-01] MEDS: SACUBITRIL/VALSARTAN 24 MG-26 MG TABLET PO SCH ×2 (10:12→21:30)
[2021-05-01] MEDS ORDERED: INSULIN (NOVOLOG) ASPART 100 UNITS/ML 10ML VIAL SQ ONE (12:14)
[2021-05-01] MEDS: metFORMIN HCL 500 MG TABLET (FP) PO SCH (17:15)
[2021-05-01] MEDS ORDERED: ATORVASTATIN CA 40 MG TABLET (FP) ONE (20:03)
[2021-05-01] MEDS: INSULIN (LEVEMIR) 100 UNITS/ML UNITS SQ SCH (21:25)
[2021-05-01] MEDS: THIAMINE HCL 100 MG TABLET (FP) PO SCH (21:27)
[2021-05-01] MEDS: traZODone HCL 100 MG TABLET (FP) PO SCH (21:28)
[2021-05-01] MEDS: ATORVASTATIN CA 80 MG TABLET (FP) PO SCH (21:29)
[2021-05-01] MEDS: ARIPiprazole 10 MG TABLET PO SCH (21:30)
[2021-05-02] MEDS: metFORMIN HCL 500 MG TABLET (FP) PO SCH ×2 (07:16→17:00)
[2021-05-02] MEDS ORDERED: INSULIN (NOVOLOG) ASPART 100 UNITS/ML 10ML VIAL ONE (07:18)
[2021-05-02] MEDS: INSULIN SLIDING SCALE (NOVOLOG) 1 VIAL SQ SCH ×4 (07:19→21:14)
[2021-05-02] MEDS: CITALOPRAM HYDROBROMIDE 20 MG TABLET PO SCH (11:52)
[2021-05-02] MEDS: ASPIRIN 81 MG CHEWABLE TABLETS PO SCH (11:52)
[2021-05-02] MEDS: SACUBITRIL/VALSARTAN 24 MG-26 MG TABLET PO SCH ×2 (11:52→21:20)
[2021-05-02] MEDS: FAMOTIDINE 20 MG TABLET PO SCH ×2 (11:53→21:17)
[2021-05-02] MEDS: metoPROLOL SUCCINATE 25 MG TAB.SR.24H (FP) PO SCH (11:53)
[2021-05-02] MEDS: PANTOPRAZOLE 40 MG TABLET PO SCH (11:53)
[2021-05-02] MEDS: GABAPENTIN 300 MG CAPSULE PO SCH ×2 (11:53→21:17)
[2021-05-02] MEDS: PRENATAL VITAMINS W/ FOLIC ACID TABLET (FP) PO SCH (11:53)
[2021-05-02] MEDS ORDERED: ATORVASTATIN CA 40 MG TABLET (FP) ONE (20:27)
[2021-05-02] MEDS: INSULIN (LEVEMIR) 100 UNITS/ML UNITS SQ SCH (21:16)
[2021-05-02] MEDS: ATORVASTATIN CA 80 MG TABLET (FP) PO SCH (21:17)
[2021-05-02] MEDS: traZODone HCL 100 MG TABLET (FP) PO SCH (21:18)
[2021-05-02] MEDS: THIAMINE HCL 100 MG TABLET (FP) PO SCH (21:19)
[2021-05-02] MEDS: ARIPiprazole 10 MG TABLET PO SCH (21:19)
[2021-05-03] MEDS: metFORMIN HCL 500 MG TABLET (FP) PO SCH ×2 (06:37→17:19)
[2021-05-03] MEDS: INSULIN SLIDING SCALE (NOVOLOG) 1 VIAL SQ SCH ×4 (06:38→21:20)
[2021-05-03] MEDS: PRENATAL VITAMINS W/ FOLIC ACID TABLET (FP) PO SCH (09:58)
[2021-05-03] MEDS: GABAPENTIN 300 MG CAPSULE PO SCH ×2 (09:58→21:22)
[2021-05-03] MEDS: CITALOPRAM HYDROBROMIDE 20 MG TABLET PO SCH (09:58)
[2021-05-03] MEDS: FAMOTIDINE 20 MG TABLET PO SCH ×2 (09:58→21:22)
[2021-05-03] MEDS: ASPIRIN 81 MG CHEWABLE TABLETS PO SCH (09:58)
[2021-05-03] MEDS: metoPROLOL SUCCINATE 25 MG TAB.SR.24H (FP) PO SCH (09:59)
[2021-05-03] MEDS: PANTOPRAZOLE 40 MG TABLET PO SCH (09:59)
[2021-05-03] MEDS: SACUBITRIL/VALSARTAN 24 MG-26 MG TABLET PO SCH ×2 (10:00→21:21)
[2021-05-03] MEDS ORDERED: INSULIN (NOVOLOG) ASPART 100 UNITS/ML 10ML VIAL ONE ×2 (11:55→21:38)
[2021-05-03] MEDS ORDERED: ATORVASTATIN CA 40 MG TABLET (FP) ONE (20:40)
[2021-05-03] MEDS: INSULIN (LEVEMIR) 100 UNITS/ML UNITS SQ SCH (21:18)
[2021-05-03] MEDS: THIAMINE HCL 100 MG TABLET (FP) PO SCH (21:21)
[2021-05-03] MEDS: ARIPiprazole 10 MG TABLET PO SCH (21:22)
[2021-05-03] MEDS: traZODone HCL 100 MG TABLET (FP) PO SCH (21:22)
[2021-05-03] MEDS: ATORVASTATIN CA 80 MG TABLET (FP) PO SCH (21:23)
[2021-05-04] MEDS: INSULIN SLIDING SCALE (NOVOLOG) 1 VIAL SQ SCH ×4 (06:56→22:01)
[2021-05-04] MEDS: metFORMIN HCL 500 MG TABLET (FP) PO SCH ×2 (06:57→16:47)
[2021-05-04] MEDS ORDERED: INSULIN (NOVOLOG) ASPART 100 UNITS/ML 10ML VIAL ONE ×3 (07:11→16:43)
[2021-05-04] MEDS: PANTOPRAZOLE 40 MG TABLET PO SCH (10:04)
[2021-05-04] MEDS: ASPIRIN 81 MG CHEWABLE TABLETS PO SCH (10:04)
[2021-05-04] MEDS: FAMOTIDINE 20 MG TABLET PO SCH ×2 (10:04→22:01)
[2021-05-04] MEDS: PRENATAL VITAMINS W/ FOLIC ACID TABLET (FP) PO SCH (10:04)
[2021-05-04] MEDS: CITALOPRAM HYDROBROMIDE 20 MG TABLET PO SCH (10:04)
[2021-05-04] MEDS: GABAPENTIN 300 MG CAPSULE PO SCH ×2 (10:04→22:00)
[2021-05-04] MEDS: metoPROLOL SUCCINATE 25 MG TAB.SR.24H (FP) PO SCH (10:04)
[2021-05-04] MEDS: SACUBITRIL/VALSARTAN 24 MG-26 MG TABLET PO SCH ×2 (10:05→22:00)
[2021-05-04] MEDS ORDERED: ATORVASTATIN CA 40 MG TABLET (FP) ONE (19:29)
[2021-05-04] MEDS: traZODone HCL 100 MG TABLET (FP) PO SCH (22:00)
[2021-05-04] MEDS: ARIPiprazole 10 MG TABLET PO SCH (22:00)
[2021-05-04] MEDS: hydrOXYzine PAMOATE 25 MG CAPSULE (FP) PO PRN (22:01)
[2021-05-04] MEDS: THIAMINE HCL 100 MG TABLET (FP) PO SCH (22:01)
[2021-05-04] MEDS: INSULIN (LEVEMIR) 100 UNITS/ML UNITS SQ SCH (22:05)
[2021-05-04] MEDS: DIVALPROEX NA *ER* EXTEND REL 500 MG TABLET.SA (FP) PO SCH (22:06)
[2021-05-04] MEDS: ATORVASTATIN CA 80 MG TABLET (FP) PO SCH (22:08)
[2021-05-05] MEDS: INSULIN SLIDING SCALE (NOVOLOG) 1 VIAL SQ SCH ×4 (06:54→21:54)
[2021-05-05] MEDS: metFORMIN HCL 500 MG TABLET (FP) PO SCH ×2 (06:56→16:44)
[2021-05-05] MEDS ORDERED: INSULIN (NOVOLOG) ASPART 100 UNITS/ML 10ML VIAL ONE ×3 (06:58→16:43)
[2021-05-05] MEDS: PRENATAL VITAMINS W/ FOLIC ACID TABLET (FP) PO SCH (10:07)
[2021-05-05] MEDS: metoPROLOL SUCCINATE 25 MG TAB.SR.24H (FP) PO SCH (10:07)
[2021-05-05] MEDS: PANTOPRAZOLE 40 MG TABLET PO SCH (10:07)
[2021-05-05] MEDS: FAMOTIDINE 20 MG TABLET PO SCH ×2 (10:07→21:43)
[2021-05-05] MEDS: SACUBITRIL/VALSARTAN 24 MG-26 MG TABLET PO SCH ×2 (10:08→21:46)
[2021-05-05] MEDS: CITALOPRAM HYDROBROMIDE 20 MG TABLET PO SCH (10:08)
[2021-05-05] MEDS: GABAPENTIN 300 MG CAPSULE PO SCH ×2 (10:08→21:43)
[2021-05-05] MEDS: ASPIRIN 81 MG CHEWABLE TABLETS PO SCH (10:08)
[2021-05-05] MEDS ORDERED: ATORVASTATIN CA 40 MG TABLET (FP) ONE (20:45)
[2021-05-05] MEDS: traZODone HCL 100 MG TABLET (FP) PO SCH (21:42)
[2021-05-05] MEDS: ARIPiprazole 10 MG TABLET PO SCH (21:43)
[2021-05-05] MEDS: ATORVASTATIN CA 80 MG TABLET (FP) PO SCH (21:45)
[2021-05-05] MEDS: DIVALPROEX NA *ER* EXTEND REL 500 MG TABLET.SA (FP) PO SCH (21:46)
[2021-05-05] MEDS: THIAMINE HCL 100 MG TABLET (FP) PO SCH (21:48)
[2021-05-05] MEDS: INSULIN (LEVEMIR) 100 UNITS/ML UNITS SQ SCH (21:51)
[2021-05-06] MEDS ORDERED: INSULIN (NOVOLOG) ASPART 100 UNITS/ML 10ML VIAL ONE ×3 (03:15→22:06)
[2021-05-06] MEDS: INSULIN SLIDING SCALE (NOVOLOG) 1 VIAL SQ SCH ×4 (06:35→21:33)
[2021-05-06] MEDS: metFORMIN HCL 500 MG TABLET (FP) PO SCH ×2 (06:36→16:53)
[2021-05-06] MEDS: metoPROLOL SUCCINATE 25 MG TAB.SR.24H (FP) PO SCH (09:36)
[2021-05-06] MEDS: SACUBITRIL/VALSARTAN 24 MG-26 MG TABLET PO SCH ×2 (09:36→21:29)
[2021-05-06] MEDS: CITALOPRAM HYDROBROMIDE 20 MG TABLET PO SCH (09:36)
[2021-05-06] MEDS: PANTOPRAZOLE 40 MG TABLET PO SCH (09:36)
[2021-05-06] MEDS: PRENATAL VITAMINS W/ FOLIC ACID TABLET (FP) PO SCH (09:36)
[2021-05-06] MEDS: GABAPENTIN 300 MG CAPSULE PO SCH ×2 (09:36→21:26)
[2021-05-06] MEDS: ASPIRIN 81 MG CHEWABLE TABLETS PO SCH (09:36)
[2021-05-06] MEDS: FAMOTIDINE 20 MG TABLET PO SCH ×2 (09:36→21:27)
[2021-05-06] MEDS: MAG HYDROX/AL HYDROX/SIMETH 30 ML UNIT-DOSE CUP PO PRN (16:55)
[2021-05-06] MEDS: traZODone HCL 100 MG TABLET (FP) PO SCH (21:25)
[2021-05-06] MEDS: ATORVASTATIN CA 80 MG TABLET (FP) PO SCH (21:26)
[2021-05-06] MEDS: THIAMINE HCL 100 MG TABLET (FP) PO SCH (21:26)
[2021-05-06] MEDS: ARIPiprazole 10 MG TABLET PO SCH (21:26)
[2021-05-06] MEDS: hydrOXYzine PAMOATE 25 MG CAPSULE (FP) PO PRN (21:27)
[2021-05-06] MEDS: DIVALPROEX NA *ER* EXTEND REL 500 MG TABLET.SA (FP) PO SCH (21:30)
[2021-05-06] MEDS: INSULIN (LEVEMIR) 100 UNITS/ML UNITS SQ SCH (21:36)
[2021-05-06] MEDS ORDERED: INSULIN (LEVEMIR) 100 UNITS/ML UNITS SQ ONE (22:06)
[2021-05-07] MEDS: INSULIN SLIDING SCALE (NOVOLOG) 1 VIAL SQ SCH ×4 (06:42→21:28)
[2021-05-07] MEDS: metFORMIN HCL 500 MG TABLET (FP) PO SCH ×2 (06:43→16:34)
[2021-05-07] MEDS ORDERED: INSULIN (NOVOLOG) ASPART 100 UNITS/ML 10ML VIAL ONE ×5 (07:13→21:47)
[2021-05-07] MEDS ORDERED: PT OWN MED DRAWER 7, Y5N ONE (08:48)
[2021-05-07] MEDS ORDERED: TRIMETHOBENZAMIDE HCL 300 MG CAPSULE PO PRN (10:05)
[2021-05-07] MEDS ORDERED: ACETAMINOPHEN 325 MG TABLET (FP) PO PRN (10:26)
[2021-05-07] MEDS: PRENATAL VITAMINS W/ FOLIC ACID TABLET (FP) PO SCH (10:28)
[2021-05-07] MEDS: PANTOPRAZOLE 40 MG TABLET PO SCH (10:28)
[2021-05-07] MEDS ORDERED: BACLOFEN 10 MG TABLET (FP) PO PRN (10:29)
[2021-05-07] MEDS: GABAPENTIN 300 MG CAPSULE PO SCH ×2 (10:29→21:23)
[2021-05-07] MEDS: ASPIRIN 81 MG CHEWABLE TABLETS PO SCH (10:29)
[2021-05-07] MEDS: CITALOPRAM HYDROBROMIDE 20 MG TABLET PO SCH (10:29)
[2021-05-07] MEDS: FAMOTIDINE 20 MG TABLET PO SCH ×2 (10:29→21:26)
[2021-05-07] MEDS: metoPROLOL SUCCINATE 25 MG TAB.SR.24H (FP) PO SCH (13:56)
[2021-05-07] MEDS: SACUBITRIL/VALSARTAN 24 MG-26 MG TABLET PO SCH ×2 (13:57→21:24)
[2021-05-07] MEDS: ATORVASTATIN CA 80 MG TABLET (FP) PO SCH (21:23)
[2021-05-07] MEDS: THIAMINE HCL 100 MG TABLET (FP) PO SCH (21:23)
[2021-05-07] MEDS: ARIPiprazole 10 MG TABLET PO SCH (21:23)
[2021-05-07] MEDS: traZODone HCL 100 MG TABLET (FP) PO SCH (21:24)
[2021-05-07] MEDS: DIVALPROEX NA *ER* EXTEND REL 500 MG TABLET.SA (FP) PO SCH (21:25)
[2021-05-07] MEDS: INSULIN (LEVEMIR) 100 UNITS/ML UNITS SQ SCH (21:31)
[2021-05-07] MEDS ORDERED: INSULIN (LEVEMIR) 100 UNITS/ML UNITS SQ ONE (21:47)
[2021-05-08] MEDS ORDERED: PT OWN MED DRAWER 7, Y5N ONE ×2 (03:13→20:14)
[2021-05-08] MEDS: metFORMIN HCL 500 MG TABLET (FP) PO SCH ×2 (06:30→16:51)
[2021-05-08] MEDS: INSULIN SLIDING SCALE (NOVOLOG) 1 VIAL SQ SCH ×4 (06:31→21:32)
[2021-05-08] MEDS: ASPIRIN 81 MG CHEWABLE TABLETS PO SCH (09:46)
[2021-05-08] MEDS: GABAPENTIN 300 MG CAPSULE PO SCH ×2 (09:46→21:26)
[2021-05-08] MEDS: metoPROLOL SUCCINATE 25 MG TAB.SR.24H (FP) PO SCH (09:46)
[2021-05-08] MEDS: CITALOPRAM HYDROBROMIDE 20 MG TABLET PO SCH (09:46)
[2021-05-08] MEDS: PRENATAL VITAMINS W/ FOLIC ACID TABLET (FP) PO SCH (09:46)
[2021-05-08] MEDS: FAMOTIDINE 20 MG TABLET PO SCH ×2 (09:46→21:24)
[2021-05-08] MEDS: PANTOPRAZOLE 40 MG TABLET PO SCH (09:46)
[2021-05-08] MEDS: SACUBITRIL/VALSARTAN 24 MG-26 MG TABLET PO SCH ×2 (09:47→21:25)
[2021-05-08] MEDS ORDERED: INSULIN (NOVOLOG) ASPART 100 UNITS/ML 10ML VIAL ONE ×3 (11:05→21:31)
[2021-05-08] MEDS ORDERED: ATORVASTATIN CA 40 MG TABLET (FP) ONE (20:12)
[2021-05-08] MEDS: THIAMINE HCL 100 MG TABLET (FP) PO SCH (21:24)
[2021-05-08] MEDS: traZODone HCL 100 MG TABLET (FP) PO SCH (21:24)
[2021-05-08] MEDS: ARIPiprazole 10 MG TABLET PO SCH (21:24)
[2021-05-08] MEDS: DIVALPROEX NA *ER* EXTEND REL 500 MG TABLET.SA (FP) PO SCH (21:26)
[2021-05-08] MEDS: ATORVASTATIN CA 80 MG TABLET (FP) PO SCH (21:27)
[2021-05-08] MEDS: INSULIN (LEVEMIR) 100 UNITS/ML UNITS SQ SCH (22:46)
[2021-05-09] MEDS: metFORMIN HCL 500 MG TABLET (FP) PO SCH ×2 (07:08→17:01)
[2021-05-09] MEDS: INSULIN SLIDING SCALE (NOVOLOG) 1 VIAL SQ SCH ×4 (07:08→21:23)
[2021-05-09] MEDS: FAMOTIDINE 20 MG TABLET PO SCH ×2 (10:29→21:26)
[2021-05-09] MEDS: ASPIRIN 81 MG CHEWABLE TABLETS PO SCH (10:29)
[2021-05-09] MEDS: metoPROLOL SUCCINATE 25 MG TAB.SR.24H (FP) PO SCH (10:29)
[2021-05-09] MEDS: CITALOPRAM HYDROBROMIDE 20 MG TABLET PO SCH (10:29)
[2021-05-09] MEDS: PANTOPRAZOLE 40 MG TABLET PO SCH (10:29)
[2021-05-09] MEDS: GABAPENTIN 300 MG CAPSULE PO SCH ×2 (10:29→21:26)
[2021-05-09] MEDS: PRENATAL VITAMINS W/ FOLIC ACID TABLET (FP) PO SCH (10:29)
[2021-05-09] MEDS: SACUBITRIL/VALSARTAN 24 MG-26 MG TABLET PO SCH ×2 (10:30→21:26)
[2021-05-09] MEDS ORDERED: INSULIN (NOVOLOG) ASPART 100 UNITS/ML 10ML VIAL ONE (10:48)
[2021-05-09] MEDS: DIVALPROEX NA *ER* EXTEND REL 500 MG TABLET.SA (FP) PO SCH (21:25)
[2021-05-09] MEDS: INSULIN (LEVEMIR) 100 UNITS/ML UNITS SQ SCH (21:25)
[2021-05-09] MEDS: traZODone HCL 100 MG TABLET (FP) PO SCH (21:26)
[2021-05-09] MEDS: ATORVASTATIN CA 80 MG TABLET (FP) PO SCH (21:26)
[2021-05-09] MEDS: ARIPiprazole 10 MG TABLET PO SCH (21:26)
[2021-05-09] MEDS: hydrOXYzine PAMOATE 25 MG CAPSULE (FP) PO PRN (21:26)
[2021-05-09] MEDS: THIAMINE HCL 100 MG TABLET (FP) PO SCH (21:26)
[2021-05-10] MEDS: INSULIN SLIDING SCALE (NOVOLOG) 1 VIAL SQ SCH ×4 (07:06→21:21)
[2021-05-10] MEDS: metFORMIN HCL 500 MG TABLET (FP) PO SCH ×2 (07:07→17:09)
[2021-05-10] MEDS ORDERED: INSULIN (NOVOLOG) ASPART 100 UNITS/ML 10ML VIAL ONE ×2 (07:09→16:45)
[2021-05-10] MEDS: GABAPENTIN 300 MG CAPSULE PO SCH ×2 (09:59→21:23)
[2021-05-10] MEDS: ASPIRIN 81 MG CHEWABLE TABLETS PO SCH (09:59)
[2021-05-10] MEDS: CITALOPRAM HYDROBROMIDE 20 MG TABLET PO SCH (09:59)
[2021-05-10] MEDS: metoPROLOL SUCCINATE 25 MG TAB.SR.24H (FP) PO SCH (09:59)
[2021-05-10] MEDS: PANTOPRAZOLE 40 MG TABLET PO SCH (09:59)
[2021-05-10] MEDS: SACUBITRIL/VALSARTAN 24 MG-26 MG TABLET PO SCH ×2 (09:59→21:23)
[2021-05-10] MEDS: FAMOTIDINE 20 MG TABLET PO SCH ×2 (09:59→21:24)
[2021-05-10] MEDS: PRENATAL VITAMINS W/ FOLIC ACID TABLET (FP) PO SCH (09:59)
[2021-05-10] MEDS: INSULIN (LEVEMIR) 100 UNITS/ML UNITS SQ SCH (21:22)
[2021-05-10] MEDS: ARIPiprazole 10 MG TABLET PO SCH (21:23)
[2021-05-10] MEDS: DIVALPROEX NA *ER* EXTEND REL 500 MG TABLET.SA (FP) PO SCH (21:23)
[2021-05-10] MEDS: traZODone HCL 100 MG TABLET (FP) PO SCH (21:24)
[2021-05-10] MEDS: ATORVASTATIN CA 80 MG TABLET (FP) PO SCH (21:24)
[2021-05-10] MEDS: THIAMINE HCL 100 MG TABLET (FP) PO SCH (21:24)
[2021-05-11] MEDS: metFORMIN HCL 500 MG TABLET (FP) PO SCH (06:34)
[2021-05-11 06:35] VITALS: BP 112/70; PULSE 71; TEMP 96.9
[2021-05-11] MEDS: INSULIN SLIDING SCALE (NOVOLOG) 1 VIAL SQ SCH (06:35)
[2021-05-11] MEDS: ASPIRIN 81 MG CHEWABLE TABLETS PO SCH (09:05)
[2021-05-11] MEDS: GABAPENTIN 300 MG CAPSULE PO SCH (09:05)
[2021-05-11] MEDS: PRENATAL VITAMINS W/ FOLIC ACID TABLET (FP) PO SCH (09:05)
[2021-05-11] MEDS: FAMOTIDINE 20 MG TABLET PO SCH (09:05)
[2021-05-11] MEDS: CITALOPRAM HYDROBROMIDE 20 MG TABLET PO SCH (09:05)
[2021-05-11] MEDS: PANTOPRAZOLE 40 MG TABLET PO SCH (09:05)
[2021-05-11] MEDS: metoPROLOL SUCCINATE 25 MG TAB.SR.24H (FP) PO SCH (09:05)
[2021-05-11] MEDS: SACUBITRIL/VALSARTAN 24 MG-26 MG TABLET PO SCH (09:06)
== END 2021-05-11 09:50 | disposition home or self-care (01) | DRG 895 ==
LOC: YASAS 12:43 → Y5N 21:04
PROVIDERS: ADMIT Allergy & Immunology; ATTEND Allergy & Immunology
PROC: HZ42ZZZ Group Counseling for Substance Abuse Treatment, Cognitive-Behavioral (ICD-10-PCS; principal; 2021-04-27)
DX: F14.20 Cocaine dependence, uncomplicated (principal); F19.280 Other psychoactive substance dependence with psychoactive substance-induced anxiety disorder; F19.282 Other psychoactive substance dependence with psychoactive substance-induced sleep disorder; Z68.41 Body mass index [BMI] 40.0-44.9, adult; F12.20 Cannabis dependence, uncomplicated; F17.210 Nicotine dependence, cigarettes, uncomplicated; F43.10 Post-traumatic stress disorder, unspecified; F31.9 Bipolar disorder, unspecified; F60.9 Personality disorder, unspecified; F19.24 Other psychoactive substance dependence with psychoactive substance-induced mood disorder; I11.0 Hypertensive heart disease with heart failure; I50.9 Heart failure, unspecified; M54.50 Low back pain, unspecified; G89.29 Other chronic pain; K21.9 Gastro-esophageal reflux disease without esophagitis; E78.5 Hyperlipidemia, unspecified; E11.65 Type 2 diabetes mellitus with hyperglycemia; K57.30 Diverticulosis of large intestine without perforation or abscess without bleeding; R10.32 Left lower quadrant pain; E66.9 Obesity, unspecified; Z62.810 Personal history of physical and sexual abuse in childhood
CPT/HCPCS: 36415; 80053; 81003; 82962; 85027; 86780; 87389; C9803; J0475; U0003; U0005